=== PATIENT | male | born 1985 | race Caucasian/White ===

== ENCOUNTER 2017-07-16 15:34 | Emergency (ER) | payer SELFPAY ==
[2017-07-16] MEDS ORDERED: LORazepam 1 MG TABLET PO ONE (15:52)
--- NOTE | 2017-07-16 16:21 | ED Physician Documentation ---
Psychological Disorders - HISTORIAN Historian: patient - HPI Chief Complaint: Psychological Disorder Additional Information: panic attacks and depression. recently mmoved here from [place] lives w/ cousin Onset: days ago (20-30) Duration: gradual onset Intent: other (has had anxiety and depression in past). 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[place] for auto and drugs) - Associated Symptoms Symptoms: depressed, other (anxious sleeps fair not so well since move from [facility] ) - ROS CONST: none NEURO/PSYCH: anxiety, depression EYES/ENT: none CVS/RESP: none GI/: denies: nausea, vomiting MS/SKIN/LYMPH: joint pain, leg swelling, rash, swollen glands - PAST HX Psychiatric problems: depression, other (anxiety) Surgical History: denies: no surgical history (arm) Immunizations: UTD Allergies/Adverse Reactions: Allergies Allergy/AdvReac Type Severity Reaction Status Date / Time No Known Allergies Allergy Verified 07/16/17 16:11 Home Medications: Ambulatory Orders Medication Instructions Recorded NK [NK] 07/16/17 - Social HX Smoking History: cigarettes (3-4 per day occnl thc) Drug Use: marijuana - Family HX Family HX: denies: mental illness - VITAL SIGNS Vital Signs: Vital Signs Temp Pulse Resp BP Pulse Ox 98.1 F 87 18 136/74 99 07/16/17 16:36 07/16/17 16:36 07/16/17 16:36 07/16/17 16:36 07/16/17 16:36 - REVIEWED ASSESSMENTS Nursing Assessment Reviewed: Yes Vitals Reviewed: Yes ED Results Lab/Radiology - Lab Results Lab Results: Lab Results 07/16/17 07/16/17 07/16/17 16:03 16:00 16:00 Urine Color Yellow (YELLOW) Urine Appearance Clear (CLEAR) Urine pH 7.0 (5.0 - 8.0) Ur Specific [place] 1.015 (1.010-1.030) Urine Protein Negative mg/dL mg/dL (NEGATIVE) Urine Ketones Negative mg/dL mg/dL (NEGATIVE) Urine Occult Blood Negative (NEGATIVE) Urine Nitrite Negative (NEGATIVE) Urine Bilirubin Negative (NEGATIVE) Urine Urobilinogen 0.2 Eu Eu (0.2-1.0) Ur Leukocyte Esterase Negative (NEGATIVE) Urine Glucose Negative mg/dL mg/dL (NEGATIVE) Opiates Screen Negative ng/mL ng/mL (<300) Oxycodone Screen Negative ng/mL ng/mL (<100) Methadone Screen Negative ng/mL ng/mL (<200) Ur Barbiturates Screen Negative ng.mL ng.mL (<200) Tricyclic Antidepress Negative ng/mL ng/mL (<300) Phencyclidine Screen Negative ng/mL ng/mL (< 25) Amphetamines Screen Negative ng/mL ng/mL (<500) U Methamphetamines Scrn Negative ng/mL ng/mL (<500) MDMA Negative ng/mL ng/mL (<500) Benzodiazepines Screen Negative ng/mL ng/mL (<150) Urine Cocaine Screen Negative ng/mL ng/mL (<150) Cannabinoids Confirm Negative ng/mL ng/mL (<15) U Cannabinoids Screen Non negative ng/mL H ng/mL (< 50) - Orders Orders: ED Orders Category Date Time Status UA MACRO DIP ONLY Routine Lab 07/16/17 16:03 Completed UDS [DRUG SCREEN URINE MEDICAL ONLY] Routine Lab 07/16/17 16:00 Completed LORazepam [Ativan] Med 07/16/17 15:52 Discontinued 2 mg PO NOW ONE Psych Physical Exam - Physical Exam General Appearance: mild distress ENT: nml ENT inspection Eyes: PERRL, EOM's intact. No: nystagmus Mental Status: mood/affect nml. No: hostile, non-communicative Orientation: nml x3. No: uncooperative Sensory, Motor: nml motor response, nml sensory response Neck/Back: normal inspection Respiratory: no resp distress, chest non-tender, breath sounds normal CVS: reg rate & rhythm, heart sounds normal Abdomen: non-tender Skin: warm/dry, normal color. No: cyanosis, diaphoresis, jaundice Extremities: non-tender, normal range of motion, no evidence of injury Discharge Clincal Impression: anxiety and depression Referrals: Primary Doctor,No [Primary Care Provider] - 2 Days Comments: home establish w/ pcp Condition: Good Disposition: 01 HOME, SELF-CARE Decision to Admit: NO Decision Time: 16:30
[2017-07-16 16:37] VITALS: BP 136/74
[2017-07-17 05:23] LABS: APPEARANCE,URINE CLEAR (CLEAR); COLOR,URINE YELLOW (YELLOW)
[2017-07-17 05:24] LABS: OCCULT BLOOD,URINE NEGATIVE (NEGATIVE); UROBILINOGEN URINE 0.2 Eu (0.2-1.0)
[2017-07-17 05:34] LABS: CANNABINOIDS NON NEGATIVE ng/mL (< 50); METHYLENEDIOXYMETHAMPHETAMINE NEGATIVE ng/mL (<500)
== END 2017-07-16 16:36 | disposition home or self-care (01) ==
LOC: ED 15:34
DX: F41.9 Anxiety disorder, unspecified (principal); F32.9 Major depressive disorder, single episode, unspecified
CPT/HCPCS: 80377; 81002; 99282; 99283; G0481